=== PATIENT | female | born 1995 | race Caucasian/White ===

== ENCOUNTER 2024-09-20 02:46 | Inpatient (IN) ==
[2024-09-20] MEDS ORDERED: CALCIUM CARBONATE 500 MG CHEWABLE TAB PO PRN (03:37)
[2024-09-20] MEDS ORDERED: OXYTOCIN 30 UNITS/NSS 30 UNITS/500 ML BAG IV PRN ×2 (03:37→19:12)
--- NOTE | 2024-09-20 03:39 | History & Physical Report ---
Date of Service September 20, 2024 Assessment & Plan (1) GBS (group B Streptococcus carrier), +RV culture, currently : (2) ROM (rupture of membranes), premature: Plan admit for rom. start gbs prophylaxis. expectant management. fetus category one. anticipate . History of Present Illness Chief Complaint: rom Primary Care Provider: MARCOS Dawson Patient is a 29yowf with iup at 39 1/7 who had a large gush of clear fluid and continued leaking. some contractions. no lof/vb. and Delivery Plans 28 wk labs hgb 11.4 - started daily Fe GBS-positive * treat in labor OB Labs: Blood Type O Positive 02/15/24 Antibody Screen NEGATIVE 02/15/24 Hgb 11.4 g/dl (12.0-16.0) L 07/04/24 Hct 33.5 % (37.0-47.0) L 07/04/24 MCV 85.5 fL (80.0-100.0) 02/15/24 Plt Count 236 K/uL (130-400) 02/15/24 Rubella IgG Antibody Immune (Immune) 02/15/24 RPR Nonreactive (Nonreactive) 02/15/24 Treponema pallidum Ab Negative (Negative) 07/04/24 Hep Bs Antigen Negative (Negative) 02/15/24 Hepatitis C Antibody Neg (Neg) 06/12/19 HIV 1&2 Ab/P24 Ag 4thGn Negative (Negative) 02/15/24 Glucose 1 Hr 50 gm 154 mg/dl (70-130) H 04/10/24 OB Optional Labs: Chlamydia trachomatis RNA Not Detected (NotDetected) 02/15/24 Neisseria gonorrhoeae RNA Not Detected (NotDetected) 02/15/24 Thyroid Stimulating Hormone (TSH) 2.090 uIu/ml (0.300-4.500) 07/26/19 Labs Reviewed: Declines genetics--mln passed 2 hr gtt x 2 gbs positive. Allergies Allergy/AdvReac Type Severity Reaction Status Date / Time No Known Drug Allergies Allergy Verified 09/15/24 08:18 Home Medications Medication Instructions Recorded Confirmed Type omega-3 acid ethyl esters 1 tab PO DAILY 02/11/24 09/20/24 History [id number] 1 tab PO DAILY 02/11/24 09/20/24 History [ Plus] lactobacillus combination no.4 3 3,000 mmu cells PO DAILY 03/28/24 09/20/24 History billion cell capsule (Probiotic) ferrous sulfate 325 mg (65 mg 325 mg PO DAILY 07/26/24 09/20/24 History iron) tablet (FeroSul) Patient History Medical History Varicella vaccination Abnormal Pap smear of cervix 2017 Costochondral pain Trigeminal neuralgia of right side of face Surgical History S/P foot surgery, right S/P wisdom tooth extraction Family History Mother Hypertension Tachycardia Father No pertinent family history Grandmother (Paternal) Cancer Cervical cancer Grandfather (Maternal) Myocardial infarction Denies family history of Ovarian cancer Prostate cancer Diabetes Alzheimer disease Breast cancer Lung cancer Colorectal cancer Stroke Social History Smoking Status: Never smoker Second Hand Exposure: No; Do You Dip or Chew Tobacco: No; Hx Alcohol Use: Yes Alcohol type: beer and wine Alcohol Intake Frequency: 2-4 x/Month Hx Substance Use: No Preferred Language: Mohawk Communication Ability: Effective Visual Impairment: Limited Hearing Ability: Normal Glaze Maker Required: No Beliefs That Will Affect Care: None marital status: marital status details: Tylor Henson (29) [phone] Current Living Situation: Spouse Current Living Situation Comment: Lives with , 2 dogs current occupational status: employed current occupation: [employer] How many Children do You have: 0 Other Information That Helps Us Care for You: Yes Feels Safe at Home: Yes Safety Concerns: Feels Safe At This Time Childhood Exposure to Second-Hand Smoke: No caffeine: Yes Dental Care, Regularly: Yes Physical Activity Frequency: 3-4 Times per Week Seatbelt Use: always Sunscreen Use: Yes Assistive Devices: None OB History g1--present 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
[2024-09-20] MEDS: PENICILLIN GK 6 MU in SODIUM CHLORIDE 0.9% 250 ML IV STA (04:01)
[2024-09-20 04:02] LABS: Hematocrit (blood only) 37.1 % (37.0-47.0); Hemoglobin 12.9 g/dl (12.0-16.0); Mean Corpuscular Hgb Conc 34.8 g/dL (32.0-36.0); Mean Corpuscular Volume 86.3 fL (80.0-100.0); Mean Platelet Volume 11.7 fL (9.4-12.4); Platelet Count 192 K/uL (130-400); RDW Coefficient of Variation 12.3 % (11.5-14.5); RDW Standard Deviation 38.8 fL (36.4-46.3); White Blood Count 16.45 K/ul (4.8-10.8)
[2024-09-20] MEDS: PENICILLIN GK 3 MU in DEXTROSE 5% 100 ML IV PRN (07:57)
[2024-09-20] MEDS: SODIUM CHLORIDE 0.9% 1,000 ML IV SCH (15:10)
[2024-09-20] MEDS: OXYTOCIN 30 UNITS/NSS 30 UNITS/500 ML BAG IV PRN (15:14)
[2024-09-20] MEDS: diphenhydrAMINE 50 MG/ML VIAL IV STA (17:41)
[2024-09-20] MEDS: LIDOCAINE 1% LOCAL 20 ML VIAL INFIL PRN (18:47)
[2024-09-20] MEDS ORDERED: HYDROCORTISONE ACETATE 25 MG SUPP PR PRN (19:12)
[2024-09-20] MEDS ORDERED: oxyCODONE/ACETAMINOPHEN 5mg/325mg TAB PO PRN (19:12)
[2024-09-20] MEDS ORDERED: bisacodyL 10 MG SUPP PR PRN (19:12)
[2024-09-20] MEDS ORDERED: ACETAMINOPHEN 325 MG TAB PO PRN (19:12)
--- NOTE | 2024-09-20 19:18 | Delivery Summary ---
Vaginal Delivery Summary Date of Service September 20, 2024 Vaginal Delivery Summary and 1st Degree LAC (vaginal) Patient is a 29-year-old 1 P0 female who presents at 39 and 1 sevenths weeks with rupture membranes for clear fluid. She is hoping to have an unmedicated . Labor started spontaneously and she progressed to 8 cm dilated but contractions began to space out and became more irregular. Pitocin augmentation was begun and she progressed to full dilation with the urge to push. She pushed effectively over intact perineum for delivery of a viable female . The support of the perineum, the was delivered in the occiput anterior position. The anterior shoulder was delivered without maternal effort. The posterior hand was then presenting and this was delivered prior to delivering the rest of the . She was vigorous crying and moving all 4 limbs. She was placed on mother's abdomen for further attention and drying. After the cord stopped pulsating after 90 seconds, the cord was clamped and cut. After cord blood was obtained, the placenta was expressed intact with a three- vessel cord. bleeding was controlled with dilute Pitocin fundal massage. 2 small vaginal tears were repaired with 3-0 chromic in the usual fashion. Their first anesthetized with 1% lidocaine. QBL is 411 mL. Mother and infant were doing well after delivery. [facility] [place] Charge Delivery Type Details: and 1st Degree LAC (vaginal)
[2024-09-20] MEDS: IBUPROFEN 600 MG TAB PO PRN (20:03)
[2024-09-20] MEDS: BENZOCAINE 20% SPRY 85 APPLN/85 GM CAN EXT PRN (20:03)
[2024-09-20] MEDS: ACETAMINOPHEN 325 MG TAB PO PRN (20:04)
[2024-09-20] MEDS: DOCUSATE SODIUM 100 MG CAP PO SCH (21:04)
[2024-09-21 06:30] LABS: Hemoglobin 10.6 g/dl (12.0-16.0); Mean Corpuscular Hemoglobin 29.6 pg (25.0-34.0); Mean Corpuscular Hgb Conc 34.2 g/dL (32.0-36.0); Mean Corpuscular Volume 86.6 fL (80.0-100.0); Mean Platelet Volume 11.6 fL (9.4-12.4); Platelet Count 204 K/uL (130-400); RDW Coefficient of Variation 12.5 % (11.5-14.5); RDW Standard Deviation 39.3 fL (36.4-46.3); Red Blood Count 3.58 M/uL (4.20-5.40); White Blood Count 21.22 K/ul (4.8-10.8)
--- NOTE | 2024-09-21 07:57 | Obstetrical Progress Note ---
Date of Service September 21, 2024 Assessment & Plan (1) Encounter for supervision of normal intrauterine in primigravida, antepartum: satisfactory course continue current OB plan Subjective Ambulation: ambulating normally Voiding: no voiding problems Passing Gas:: Yes Diet Tolerance:: regular diet Lochia:: Small Feeding Type:: breast feeding Review of Systems All systems reviewed & are unremarkable except as noted in HPI & below Physical Exam Constitutional WD/WN, vitals as above Psychiatric A+Ox3, euthymic affect Genitourinary OB Exam Abdomen: + fundal height Fundus: + firm and + relation to umbilicus (1 below) Results & Data Vital Signs (Past 12 Hours) Vital Signs Temp Pulse Pulse Resp BP BP Pulse Ox 09/21/24 03:10 98.2 F 77 20 107/64 99 09/21/24 00:00 98.2 F 88 20 92/59 L 99 09/20/24 21:55 98.1 F 68 20 94/59 L 99 09/20/24 21:55 09/20/24 21:07 117 H 84/53 L 09/20/24 21:06 150 H 84/47 L 09/20/24 20:42 84 97/56 L 09/20/24 20:27 80 96/52 L 09/20/24 20:12 98.1 F 18 09/20/24 20:12 86 103/62 09/20/24 19:57 91 H 100/58 L O2 Del Method 09/21/24 03:10 Room Air 09/21/24 00:00 Room Air 09/20/24 21:55 Room Air 09/20/24 21:55 Room Air 09/20/24 21:07 09/20/24 21:06 09/20/24 20:42 09/20/24 20:27 09/20/24 20:12 09/20/24 20:12 09/20/24 19:57
[2024-09-21] MEDS: PRENATAL VITAMIN 1 TAB PO SCH (08:04)
[2024-09-21] MEDS: DIPHTHER/TETAN/PERTUS Vaccine (Tdap, Adol/Adult) 0.5mL IM ONE (08:05)
[2024-09-21] MEDS: bisacodyL 5 MG TABEC PO SCH (20:00)
[2024-09-21 23:22] VITALS: TEMP 97.9; O2SAT 95
--- NOTE | 2024-09-22 07:30 | Obstetrical Progress Note ---
Date of Service September 22, 2024 Assessment & Plan (1) Encounter for assessment: Plan: Patient is PPD 2 s/p and doing well - Eating well, voiding well, ambulating well - vitals reviewed and within normal limits - pain well controlled with analgesics - OOB, ambulation, diet progression as tolerated - Blood type: A+, GBS pos, rubella immune - Plan to discharge today - After discharge, 6 week follow up with OBGYN Admission and Anticipated Discharge Date Admission Date: September 20, 2024 Supervising Physician Co-Signing Physician Notes Resident Physician Supervision Note: I interviewed and examined the patient. Discussed with Dr. Tilley and agree with findings and plan as documented in the note. Any exceptions or clarifications are listed here: PPD#2 doing well. DC home. Instructions reviewed. Documented By: Karla Steven, Subjective 29 yo post- day 2 s/p Ambulation: ambulating normally Voiding: no voiding problems Passing Gas:: Yes Diet Tolerance:: regular diet Lochia:: Small Feeding Type:: breast feeding Current Pain Level:1/10 Resting comfortably this AM in NAD. Denies PEREZ, CP, SOB, N/V/D, LE pain/swelling. Physical Exam Physical Exam: General: patient resting comfortably, NAD, non-toxic in appearance, answers questions appropriately. Skin: warm, dry, intact HEENT: NC/AT, anicteric sclera, conjunctiva without injection, moist mucus membranes. Heart: +S1/S2, regular, no m/r/g Lungs: equal air entry bilaterally, no rales/rhonchi/wheezes Abd: +BS, soft, NT/ND, uterine fundus firm at umbilicus Ext: warm, no clubbing/cyanosis or edema Neuro: nonfocal, speech intact, no facial droop, moving all extremities. Results & Data Vital Signs (Past 12 Hours) Vital Signs Temp Pulse Resp BP Pulse Ox O2 Del Method 09/21/24 23:20 36.6 C 70 16 97/59 L 95 Room Air Resident Activity Tracking Resident Involvement: Resident Care Provided Care Provided: OB Delivery
[2024-09-22 07:38] LABS: Hemoglobin 9.8 g/dl (12.0-16.0)
[2024-09-22 10:22] VITALS: BP 106/67; PULSE 77; RESP 18
== END 2024-09-22 15:40 | disposition home or self-care (01) | DRG 807 ==
LOC: OPB 02:46 → 4S1 02:49 → 4E2 21:37